=== PATIENT | female | born 1955 | race Caucasian/White ===

== ENCOUNTER 2020-05-26 07:38 | Outpatient (REF) | payer OTHER, SELFPAY ==
--- NOTE | ~2020-05-26 | MM_ITS ---
EXAMINATION: MM SCREENING DIGITAL BREAST TOMOSYNTHESIS, BILATERAL CLINICAL INFORMATION: Screening. Asymptomatic. The lifetime risk of breast cancer based on the Tyrer-Cuzick Model is 10%. COMPARISON: Mammography: 04/09/2019, 01/30/2018, 11/29/2016 TECHNIQUE: Digital breast tomosynthesis is performed in both the craniocaudal and mediolateral oblique views along with computer-aided detection (CAD). Synthesized 2D images are generated from the tomosynthesis. Additional right MLO view is provided. FINDINGS: There are scattered areas of fibroglandular density (ACR BI-RADS breast composition Category b). There are no significant masses, abnormal calcifications, or other abnormalities. Scattered parenchymal densities are stable. There is no interval mass or architectural abnormality or abnormal calcifications. No significant changes from prior exams. MM/MM tomosynthesis screening BI IMPRESSION: No mammographic evidence of malignancy. ASSESSMENT: BI-RADS 1: Negative RECOMMENDATION: Routine annual mammography screening. This patient's information was entered into a reminder system with a target due date for their next mammogram.
== END 2020-05-26 07:39 | disposition home or self-care (01) ==
LOC: HO.MAMMO 07:38
PROVIDERS: Visit Provider Internal Medicine
DX: Z12.31 Encounter for screening mammogram for malignant neoplasm of breast (principal)
CPT/HCPCS: 77063; 77067

== ENCOUNTER 2021-06-01 07:41 | Outpatient (REF) | payer MEDICARE, SELFPAY ==
--- NOTE | ~2021-06-01 | MM_ITS ---
EXAMINATION: MM SCREENING DIGITAL BREAST TOMOSYNTHESIS, BILATERAL CLINICAL INFORMATION: Screening. Asymptomatic. The lifetime risk of breast cancer based on the Tyrer-Cuzick Model is 8%. COMPARISON: Mammography: 05/26/2020, 04/09/2019, 01/30/2018 TECHNIQUE: Digital breast tomosynthesis is performed in both the craniocaudal and mediolateral oblique views along with computer-aided detection (CAD). Synthesized 2D images are generated from the tomosynthesis. FINDINGS: There are scattered areas of fibroglandular density (ACR BI-RADS breast composition Category b). There are no significant masses, abnormal calcifications, or other abnormalities. Tissue composition borders on predominantly fatty. Background stromal and fibroglandular densities are stable. No significant changes. MM/MM tomosynthesis screening BI IMPRESSION: No mammographic evidence of malignancy. ASSESSMENT: BI-RADS 1: Negative RECOMMENDATION: Routine annual mammography screening. This patient's information was entered into a reminder system with a target due date for their next mammogram.
== END 2021-06-01 07:42 | disposition home or self-care (01) ==
LOC: HO.MAMMO 07:41
PROVIDERS: Visit Provider Internal Medicine
DX: Z12.31 Encounter for screening mammogram for malignant neoplasm of breast (principal)
CPT/HCPCS: 77063; 77067

== ENCOUNTER 2022-06-14 07:21 | Outpatient (REF) | payer MEDICARE, SELFPAY ==
--- NOTE | ~2022-06-14 | MM_ITS ---
EXAMINATION: MM SCREENING DIGITAL BREAST TOMOSYNTHESIS, BILATERAL CLINICAL INFORMATION: Screening. Asymptomatic. The lifetime risk of breast cancer based on the Tyrer-Cuzick Model is 7%. COMPARISON: Mammography: 06/01/2021, 05/26/2020, 04/09/2019 01/30/2018 TECHNIQUE: Digital breast tomosynthesis is performed in both the craniocaudal and mediolateral oblique views along with computer-aided detection (CAD). Synthesized 2D images are generated from the tomosynthesis. Additional bilateral MLO views are provided. FINDINGS: There are scattered areas of fibroglandular density (ACR BI-RADS breast composition Category b). There are no significant masses, abnormal calcifications, or other abnormalities. Parenchymal pattern is similar to prior studies. There is no developing density or architectural abnormality. The axilla and skin contours are unremarkable. No significant changes. MM/MM tomosynthesis screening BI IMPRESSION: No mammographic evidence of malignancy. ASSESSMENT: BI-RADS 1: Negative RECOMMENDATION: Routine annual mammography screening. This patient's information was entered into a reminder system with a target due date for their next mammogram.
== END 2022-06-14 07:22 | disposition home or self-care (01) ==
LOC: HO.MAMMO 07:21
PROVIDERS: PCP Internal Medicine; Visit Provider Internal Medicine
DX: Z12.31 Encounter for screening mammogram for malignant neoplasm of breast (principal)
CPT/HCPCS: 77063; 77067

== ENCOUNTER 2023-06-20 07:21 | Outpatient (REF) | payer MEDICARE, SELFPAY | END 2023-06-20 07:22 | disposition home or self-care (01) | LOC: HO.MAMMO 07:21 | PROVIDERS: PCP Internal Medicine; Visit Provider Internal Medicine | DX: Z12.31 Encounter for screening mammogram for malignant neoplasm of breast (principal) | CPT/HCPCS: 77063; 77067 ==

== ENCOUNTER → 2023-06-20 07:30 | Outpatient (BNV) | payer MEDICARE, SELFPAY | PROVIDERS: PCP Internal Medicine; Visit Provider Radiology Diagnostic Radiology | DX: Z12.31 Encounter for screening mammogram for malignant neoplasm of breast (principal) | CPT/HCPCS: 77063; 77067 ==

== ENCOUNTER 2024-07-09 07:31 | Outpatient (REF) | payer MEDICARE, SELFPAY ==
--- OUTSIDE RECORDS SUMMARY | 2024-07-09 07:33 | XMS_ITS ---
Author Organization [facility]to ra[facility]ae[address] [place] Address [address] [place] [address] Care Team Providers Care Service Plumber Name Role Phone Aishwarya Barahona MD Primary Care Provider Herlinda Duggan Unavailable [phone] Allergies Allergen (clinical drug ingredient) Drug/Non Drug Allergy documented on EMR Reaction Allergy Type Onset Date Status Adhesive Tape rash Drug Allergy Act bello Results Component Value Reference Range Notes X ray : Foot, right 3V Reviewed date:10/26/2023 11:55:49 AM Interpretation:See Examination above Performing Lab: Notes/Report: See Examination above REASON FOR VISIT Painful Toe(s), At Risk Footcare Medications Medication SIG (Take, Route, Frequency, Duration) Notes Start Date End Date Status Aspirin Active Lisinopril 10 MG 1 tablet Orally Once a day for 30 day(s) 20 ml Active Multivitamin Active Amiodarone HCl in Dextrose 900-5 MG/500ML as directed Intravenous Not-Taking amLODIPine Besylate 5 MG 1 tablet Orally Once a day Active Ammonium Lactate 12 % 1 application to affected area Externally to feet Twice a day for 30 days Unknown Melatonin Not-Taking ASA Not-Taking Physical Therapy 3-4x per week for 3- 4 weeks 02/26/2016 Not-Taking Night Splint AFO - L1930 as directed 02/26/2016 Not-Taking metFORMIN HCl Active motrin Active Simvastatin Active Caltrate 600+D Plus Active Social History Tobacco Use: Social History Observation Description Date Details (start date - stop date) Former Smoker NA - NA Tobacco Use/Smoking Question Answer Notes Are you a: former smoker Additional Findings: Tobacco Non-User Current no n-smoker Alcohol Screen Question Answer Notes Did you have a drink containing alcohol in the p ast year? No Points 0 Interpretation Negative Tobacco use other than smoking: Question Answer Notes Are you an other tobacco user? No Vital Signs Height 5ft 5in in 10/26/2023 Weight 265 lbs 10/26/2023 BMI 44.09 kg/m2 10/26/2023 Procedures Procedure Date Ordered Date Performed Result Body Sit e 43419-KVJS SKIN LESIONS, OVER 4 10/26/2023 N/A R0207-BNAAZVIU DYSTROPHIC NAILS ANY # 10/26/2023 N/A Encounters Encounter Location Date Provider Diagnosis [facility] [place] [address] [place] [address] 10/26/2023 Herlinda Black Pain in right toe(s) M79.674 ; Closed nondisplaced fracture of distal phalanx of right great toe, initial encounter S92.424A ; Contusion of right great toe without damage to nail, initial encounter S90.111A ; Contusion of lesser toe of right foot without damage to nail, initial encounter S90.121A ; Type 2 diabetes mellitus without complications E11.9 and Other hammer toe(s) (acquired), right foot M20.41 Assessments Encounter Date Diagnosis (ICD Code) Assessment Notes Treatment Notes Treatment Clinical Notes Section Notes 10/26/2023 Pain in right toe(s) (ICD-10 - M79.674) 10/26/2023 Closed nondisplaced fracture of distal phalanx of right great toe, initial encounter (ICD-10 - S92.424A) 10/26/2023 Contusion of right great toe without damage to nail, initial encounter (ICD-10 - S90.111A) 10/26/2023 Contusion of lesser toe of right foot without damage to nail, initial encounter (ICD-10 - S90.121A) 10/26/2023 Type 2 diabetes mellitus without complications (ICD-10 - E11.9) 10/26/2023 Other hammer toe(s) (acquired), right foot (ICD-10 - M20.41) Plan Of Treatment Pending Test Test Name Order Date 87649-CZNY SKIN LESIONS, OVER 4 10/26/19 24 I0135-CTPIDXFZ DYSTROPHIC NAILS ANY # Next Appt Details Follow Up: 4 Weeks, Reason: Provider Name:Herlinda Stewart , 10/24/2024 08:00:00 AM, [address] [place], [address], Procedure Notes * Category Sub-Category Detail Notes Keratoma Treatment Parring or Cutting o f Benign Hyperkeratotic Lesion(s) 25874 ( >4 Lesions) - The Benign hyperkeratotic lesions, as described above were pared, and/or cut utilizing a sterile #15 blade, tissue nippers, and/or dremel Nail Reduction Nail Reduction Trimming of dyst rophic nails performed to reduce/remove overall nail length and girth, by manual and electrical means with use of a nail nipper and/or dremel, to more viable healthy nail plate or bed tissue 6-10 (G0127) Progress Notes * Nidia GUZMAN EDOB:1955 (67 yo F)Acc No.[id number]:10/26/2023 Progress Note Patient:?MelisaChiomaanay Blake Provider:?Herlinda Stewart DPM :1955???Age:67 Y???Sex:Female D ate:10/26/2023 Address:[address] [place], [place] [id number] Pcp:Aishwarya Barahona MD Subjective: * Chief Complaints: * ???Painful Toe(s)At Risk Cricket tcare * HPI: ???Toe pain:?Nature:?aching,?bruising,?discoloration,?swelling,?tenderness,?throbbing.?Location:?Right foot.?Duration:?since DOI (10/01/2023 ).?Onset/Cause:?states traumatic ( _pt fell?).?Course:?worse.?Aggravated by:?any pressure, standing/walking, shoes.?Treatments:?rest/alter normal daily activity, ice , medication ( motrin).?At Risk footcare:?Pt States Last PCP Visit:?Date?05/07/2023 * ROS:?General/Constitutional:?Nausea?denies.?Vomiting?denies.?Hunger Thirst?denies.?Loss appetite?denies.?Chills?denies.?Fatigue?denies.?Fever?denies.?Night Sweats?denies.?Unexplained weight loss?denies.?Unexplained weight gain?denies.?HEENTM:?Dentures?denies.?Dizziness?denies.?Glasses/contacts?denies.?Retinopathy?de nies.?Blurred/double vision?denies.?TMJ?denies.?Discharge/drainage?denies.?Implants?denies.?Sore throat?denies.?Dental implants?denies.?Hard of hearing ?denies.?Difficulty chewing/swallowing/speaking?denies.?Nose bleeds?denies.?Sore mouth?denies.?Respiratory:?On Oxygen?denies.?Pneumonia/pleurisy?denies.?Bronchitis?denies.?Emphysema?denies.?C oughing?denies.?Cough blood?denies.?Shortness of breath?denies.?Wheezing?denies.?Cardiovascular:?Pacemaker?denies.?MVP?denies.?WPW?denies.?CHF?denies.?Heart attack?denies.?Septal defect?denies.?Rapid beat?denies.?Chest pain ?denies.?Atrial Fib.?denies.?Murmur/Palpitations?denies.?Gastrointestinal:?Hemorrhoids?denies.?Stomach/Abdominal pain?denies.?Dark blood stool?denies.?Irritable bowel ?denies.?Constipation?denies.?Diarrhea?denies.?Hematology:?Swelling?denies.?Clots?denies.?Varicose Veins?denies.?Bruising?denies.?Bleeding problem?denies.?Genitourinary:?Blood urine?denies.?Frequent/Painfu/urination/bladder control?denies.?Kidney stones?denies.?Infection (UTI)?denies.?Nephropathy?denies.?sex trans dis (STD)?denies.?Prostate?denies.?Musculoskeletal:?Hammertoes?admits.?Bunions?denies.?Back Pain?denies.?Muscle Cramps/ Resting?denies.?Muscle cramps / walking?denies.?Generalized aches and pains?denies.?Weakness?denies.?Integ.:?Strickland?denies.?Scars?denies.?Corns/calluses?denies.?Ingrown nails?denies.?Painful nails?denies.?Open Sores?denies.?Rashes?denies.?Neurologic:?Difficulty sleeping?denies.?Brain disorder?denies.?Numbness?denies.?Balance trouble?denies.?Confusion?denies.?Fainting/blackouts?denies.?Tingling?denies.?Tr emors?denies.? * Medical History:? * Surgical History:?Gall Bladd er 1996C Section Child 1979Back Spinal Stenosis 2006 * Hospitalization/Major Diagno stic Procedure:?Denies Past Hospitalization * Family History:?Mother: dece ased.?Father: , diagnosed with Other malignant neoplasm of unspecified site.?Siblings: alive, Sister- cancer, diagnosed with Other malignant neoplasm of unspecified site.? * Social History:?Tobacco Use:?Tobacco Use/Smoking?Are you a:?former smoker ?Additional Findings: Tobacco Non-User?Current non-smoker ?Tobacco use other than smoking?Are you an other tobacco user??No ???Drugs/Alcohol:?Drugs?Have you used drugs other than those for medical reasons in the past 12 months??No ?Alcohol Screen?Did you have a drink containing alcohol in the past year??No ?Points?0 ?Interpretation?Negative ???Miscellaneous:?no Caffeine. ?Children: yes, 1. ?Exercise: yes, walking. ?Marital status: . ?Occupation: insurance verification specialist. * Medications:?TakingMultivita min amLODIPine Besylate 5 MG Tablet 1 tablet Orally Once a dayLisinopril 10 MG Tablet 1 tablet Orally Once a day, Notes: 20 mlAspirin Caltrate 600+D Plus Simvastatin motrin metFORMIN HCl Taking Multivitamin Taking amLODIPine Besylate 5 MG Tablet 1 tablet Orally Once a dayTaking Lisinopril 10 MG Tablet 1 tablet Orally Once a day, Notes: 20 mlTaking Aspirin Taking Caltrate 600+D Plus Taking Simvastatin Taking motrin Taking metFORMIN HCl Not-Taking/PRNAmiodarone HCl in Dextrose 900-5 MG/500ML Solution as directed Intravenous ASA Melatonin Night Splint AFO - L1930 as directed Physical Therapy 3-4x per week for 3-4 weeks Not- Taking/PRN Amiodarone HCl in Dextrose 900-5 MG/500ML Solution as directed Intravenous Not-Taking/PRN ASA Not-Taking/PRN Melatonin Not-Taking/PRN Night Splint AFO - L1930 as directed Not-Taking/PRN Physical Therapy 3-4x per week for 3-4 weeks UnknownAmmonium Lactate 12 % Cream 1 application to affected area Externally to feet Twice a dayMedication List reviewed and reconciled with the patientUnknown Ammonium Lactate 12 % Cream 1 application to affected area Externally to feet Twice a dayMedication List reviewed and reconciled with the patient * Allergies:?Adhesive Tape: ra daniel[Allergies Verified] Objective: * Vitals:?Ht: 5ft 5in, Wt:265, BMI:44.09, Shoe size: 9.5, Ht-cm: 165.1 cm, Wt-k.2 kg. * ???Past Orders: ???Lab:HEMOGLOBIN A1C (GLYCO HEMOGLOBIN) (Order Date - 04/17/2023) (Collection Date - 04/17/2023) ? Value Reference Range ?HEMOGLOBIN A1C % (HH) 5.5 * Examination: ???Ophthalmology Referral: ?DIABETES EYE EXAM?Diabetic Retinopathy Screening:?Yes 07/09 ?Findings of Diabetic Eye Exam:?no retinopathy?General Examination: ?GENERAL APPEARANCE:?Reveals a pleasant, alert, well nourished, well developed, well hydrated individual, who demonstrates proper attention to hygene/body habitus, and is in no acute distress.?ORIENTED:?person, place, and time.?FOOT EXAM:?Lower Extremity Neurological Exam performed:?Yes ?Visual exam of foot performed:?Yes ?Date?10/26/2023 ?Sensory testing performed:?sensations normal ?Sensory and motor testing performed:?sensations and strength normal ?Pedal pulse taking performed:?2+?Orthopedic: ?DIGITAL DEFORMITIES:? Reveals pain to palpation, swelling, ecchymosis, and limited ROM , 1-5 right , Digital contracture, PIPJ, 2-5 B/L, incompl-reducible with WB, or to push-up test, no over, nor underlapping.?FOOTWEAR:?good condition, exhibit proper fit and accomodation for pedal deformities..?Nails: ?NAILS are:? Nail plate intact , Elongated, overgrown, dystrophic, 1-5 B/L, white superficial debris present 1-5 b/l.?Neurological: ?SENSORY:?Neurological exam reveals intact sensorium, pain sensation normal, vibration sensation intact, pinprick sensation is normal in the lower extremities, Pt denies, anesthesia, burning, paresthesia, tingling, B/L, 5.07 monofilament test performed at plantar aspects of 5 varied sites per foot shows sensation, normal.?Vascular: ?DP PULSES:?2/4, B/L.?PT PULSES:?2/4, B/L.?CAPILLARY FILL TIME:?immediate, all digits, B/L.?SKIN TEMPERTURE GRADIENT OF THE LOWER EXTERMITIES:?normal, warm to cool, proximal to distal, B/L, B/L.?HAIR GROWTH/TEXTURE/ELASTICITY/TURGOR:?normal, B/L.?PIGMENTATION:?normal, B/L.?Dermatologic: ?SKIN FINDINGS:?Skin exam reveals keratotic lesion(s) located at, Plantar 1st interspace left, Heel(s), B/L , TA, Medial plantar, T4 T9 ,.?X-Rays - IMAGING REPORT: ?Clinical Indication(s):? Evaluate for Fracture.?Views:? 3 views of Foot, AP, LO, MO, RIGHT.?Findings:? normal bone?density consistent for patients age and sex, increase in soft tissue contour and density at the symptomatic site.?Fracture:?base of , distal phalange , T5 , nondisplaced with good end to end apposition , base of , proximal phalange , T8.? Assessment: * Assessment: 1.?Pain in right toe(s) - M7 9.674?2.?Closed nondisplaced fracture of distal phalanx of right great toe, initial encounter - S92.424A (Primary)?3.?Contusion of right great toe without damage to nail, initial encounter - S90.111A, Acute problem, Complicated w/ Multiple Tx Options(4),Dx New problem, Prognosis Uncertain (4)?4.?Contusion of lesser toe of right foot without damage to nail, initial encounter - S90.121A, Acute problem, Complicated w/ Multiple Tx Options(4),Dx New problem, Prognosis Uncertain (4)?5.?Type 2 diabetes mellitus without complications - E11.9?6.?Other hammer toe(s) (acquired), right foot - M20.41? Plan: * Treatment: 2.?Type 2 diabetes mellitus without complications?Procedure: 18892-HGME SKIN LESIONS, OVER 4 ?Procedure: P3033-DWTQAHOA DYSTROPHIC NAILS ANY # * Procedures:?Keratoma Treatment:?Parring or Cutting of Benign Hyperkeratotic Lesion(s)?05351 ( >4 Lesions) - The Benign hyperkeratotic lesions, as described above were pared, and/or cut utilizing a sterile #15 blade, tissue nippers, and/or dremel.?Nail Reduction:?Nail Reduction?Trimming of dystrophic nails performed to reduce/remove overall nail length and girth, by manual and electrical means with use of a nail nipper and/or dremel, to more viable healthy nail plate or bed tissue 6-10 (G0127).? * Procedure Codes:?59953 X-RAY EXAM OF RIGHT FOOT 3V, Modifiers: 26 , [id number] TRIM SKIN LESIONS, OVER 4, Modifiers: XS G0127 TRIMMING DYSTROPHIC NAILS ANY #, Modifiers: XS * Preventive Medicine:? ??Counseling:?Discussion:?-14: Office or other outpatient visit for the evaluation and management of an established patient, which required a medically appropriate history and/or examination and MODERATE level of DECISION MAKING for: 1 OR MORE CHRONIC PROBLEM(S) THATS WORSENING, 2 STABLE CHRONIC PROBLEMS, A NEWLY DIAGNOSED PROBLEM WITH UNCERTAIN PROGNOSIS, AN ACUTE COMPLICATED INJURY WITH MULTIPLE TREATMENT OPTIONS, OR AN ACUTE PROBLEM WITH ACCOMPANYING SYSTEMIC SYMPTOMS, THAT POSE(S) A MODERATE RISK OF MORBIDITY. THIS CONDITION MAY ALSO INCLUDE RX DRUG MANAGEMENT, OR A DECISON FOR MINOR SURGERY. The visit on the day of the encounter encompassed interpreting the data and educating the patient as to the nature of their condition, treatment options available according to their individual PMH, meds, allergies, and overall health/living conditions, as well as any potential risks or complications that may occur from a failure to adhere to, and participate in, the recommended course of therapy. The discussion included a complete verbal, and/or written explanation of the examination results, any x-rays taken, the proposed diagnosis, and outline of the treatment plan. A schedule for future care needs was also explained. The patient verbalized an understanding of the instructions at this time and agreed to be an active participant in their treatment. If the patient should think of any questions or concerns after the visit, I have encouraged the patient to call the office.?P.R.I.C.E.:?The patient was counseled on the use of P.R.I.C.E. and NSAIDS (if well tolerated) to aid in the recovery from their painful condition, Discussed and reviewed the X-rays with the patient. We discussed how the findings relate to the patients symptoms/complaints. Answered any and all questions., Recommended Topical analgesics including Aspercream/Biofreeze/Voltaren gel as directed.? * Follow Up:?4 Weeks * Images: * Sign off status: Completed true * Provider:?Herlinda Stewart DPM Date:?2023 Generated for Kristen ma/Soo/eTruddysmitting on:?07/09/2024 07:33 AM EDT History and Physical Notes * HPI (History of Present Illness) Category Sub-Category Detail Notes Category Not es Toe pain Nature: aching, bruising , discoloration, swelling, tenderness, throbbing Location: Right foot Duration: since DOI (10/01/2023 ) Onset/Cause: states traumatic ( _ pt fell ) Course: worse Aggravated by: any pressure, standi ng/walking, shoes Treatments: rest/alter normal da karin activity, ice , medication ( motrin) At Risk footcare Pt States Last PCP Visit: Date: 4 Examination Category Sub-Category Detail Notes Category Not es Heel Pain INSPECTION REVEALS: Neurological SENSORY: Neurological exa m reveals intact sensorium, pain sensation normal, vibration sensation intact, pinprick sensation is normal in the lower extremities, Pt denies, anesthesia, burning, paresthesia, tingling, B/L, 5.07 monofilament test performed at plantar aspects of 5 varied sites per foot shows sensation, normal Dermatologic SKIN FINDINGS: Skin exam reveal s keratotic lesion(s) located at, Plantar 1st interspace left, Heel(s), B/L , TA, Medial plantar, T4 T9 , Orthopedic FOOTWEAR EVALUATION: good condit ion, exhibit proper fit and accomodation for pedal deformities. DIGITAL DEFORMITIES: Reveals pain to pal pation, swelling, ecchymosis, and limited ROM , 1-5 right , Digital contracture, PIPJ, 2-5 B/L, incompl-reducible with WB, or to push-up test, no over, nor underlapping General Examination GENERAL APPEARANCE: Reveals a pleasant, alert, well nourished, well developed, well hydrated individual, who demonstrates proper attention to hygene/body habitus, and is in no acute distress FOOT EXAM: Lower Extremity Neurological Exa m performed:: Yes Visual exam of foot performed:: Yes Date: 10/26/2023 Sensory testing performed:: sensations n ormal Sensory and motor testing performed:: se nsations and strength normal Pedal pulse taking performed:: 2+ ORIENTED: person, place, and t stephani Ophthalmology Referral DIABETES EYE EXAM Diabetic Reti nopathy Screening:: Yes 07/09 Findings of Diabetic Eye Exam:: no retin opathy Vascular DP PULSES (B): 2/4, B/L PT PULSES (B): 2/4, B/L CAPILLARY FILL TIME: immediate, all digi ts, B/L TEMPERTURE GRADIENT (C): normal, warm to cool, proximal to distal, B/L, B/L TROPHIC CONDITION-TEXTURE/ELASTICITY/TURGOR/HAIR GROWTH (B): normal, B/L PIGMENTATION: normal, B/L Nails NAILS are: Nail plate intac t , Elongated, overgrown, dystrophic, 1-5 B/L, white superficial debris present 1-5 b/l X-Rays - IMAGING REPORT Findings: normal b one density consistent for patients age and sex, increase in soft tissue contour and density at the symptomatic site Fracture: base of , distal pha mann , T5 , nondisplaced with good end to end apposition , base of , proximal phalange , T8 Views: 3 views of Foot, AP, LO, MO, RIGHT Clinical Indication(s): Evaluate for Fra cture
== END 2024-07-09 07:32 | disposition home or self-care (01) ==
LOC: HO.MAMMO 07:31
PROVIDERS: PCP Internal Medicine; Visit Provider Internal Medicine
DX: Z12.31 Encounter for screening mammogram for malignant neoplasm of breast (principal)
CPT/HCPCS: 77063; 77067

== ENCOUNTER → 2024-07-09 07:45 | Outpatient (BNV) | payer MEDICARE, SELFPAY | PROVIDERS: PCP Internal Medicine; Visit Provider Internal Medicine | DX: Z12.31 Encounter for screening mammogram for malignant neoplasm of breast (principal) | CPT/HCPCS: 77063; 77067 ==